=== PATIENT | female | born 1975 | race Two or more races ===

== ENCOUNTER 2017-03-03 19:52 | Emergency (ER) | payer MEDICAID ==
[~2017-03-03] VITALS: Ht 157.5 cm; Wt 68.9 kg
[2017-03-03] MEDS ORDERED: ONDANSETRON 4 MG/2 ML VIAL IV ONE (20:45)
[2017-03-03] MEDS ORDERED: KETOROLAC TROMETHAMINE 15 MG INJ IV ONE (20:45)
[2017-03-03] MEDS ORDERED: IV NORMAL SALINE 1000 ML BAG IV ONE (20:45)
[2017-03-03] MEDS ORDERED: HYDROMORPHONE 1 MG/1 ML DISP.SYRIN IV ONE (20:45)
[2017-03-03 21:01] LABS: *BILIRUBIN,URIN NEGATIVE (NEGATIVE); *BLOOD, URINE 3+ (NEGATIVE); *COLOR,URINE YELLOW (YELLOW); *KETONES,URINE NEGATIVE (NEGATIVE); *PROTEIN,URINE NEGATIVE (NEGATIVE); *UROBILINOGEN,URINE 0.2 E.U./dl (NORMAL); LEUKOCYTE ESTERASE ,URINE NEGATIVE (NEGATIVE); NITRITE, URINE NEGATIVE (NEGATIVE); UGLUCOSE NEGATIVE (NEGATIVE)
[2017-03-03] MEDS ORDERED: KETOROLAC TROMETHAMINE 15 MG INJ ONE (21:06)
[2017-03-03] MEDS ORDERED: ONDANSETRON 4 MG/2 ML VIAL ONE (21:06)
[2017-03-03] MEDS ORDERED: HYDROMORPHONE 2 MG/1 ML DISP.SYRIN ONE (21:06)
[2017-03-03 21:11] LABS: BASOPHILS # (AUTO) 0.1 K/uL (0.0-8.0); BASOPHILS % (AUTO) 0.8 % (0.0-2.0); CREATININE 0.7 mg/dL (0.6-1.3); HEMATOCRIT 42.3 % (37-47); LYMPHOCYTES % (AUTO) 20.1 % (20.5-51.5); MEAN CORPUSCULAR HEMOGLOBIN 27.4 UUG (27.0-31.0); MEAN CORPUSCULAR HGB CONC 33 g/dL (32.0-37.0); MEAN CORPUSCULAR VOLUME 82.9 FL (81.0-99.0); MONOCYTES # (AUTO) 0.8 K/UL (0.1-1.30); MONOCYTES % (AUTO) 8.3 % (0.0-11.0); NEUTROPHILS % (AUTO) 60.8 % (38.5-71.5); PLATELET COUNT (AUTO) 320 K/UL (150-450); POTASSIUM 3.7 mmol/L (3.5-5.1); WHITE BLOOD COUNT (AUTO) 9.9 K/UL (4.0-11.2)
[2017-03-03 21:16] LABS: *CLARITY,URINE HAZY (CLEAR); BILIRUBIN,DIRECT 0.1 mg/dL (0.0-0.2); BILIRUBIN,TOTAL 0.3 mg/dL (0.2-1.0); TOTAL PROTEIN, SERUM 7.4 g/dL (6.4-8.2)
[2017-03-03 21:20] LABS: BACTERIA,URINE MODERATE /HPF (NONE SEEN); SQUAMOUS EPITHELIAL CELL,UR MANY /HPF (NONE SEEN); WBC,URINE 0-3 /HPF (0-3)
[2017-03-03 21:26] LABS: *URINE HCG, QUAL NEGATIVE (NEGATIVE)
[2017-03-03 23:18] VITALS: BP 124/76
--- NOTE | 2017-03-03 23:18 | NUR ---
Patient discharged to home in stable conditon. Written and verbal after care instructions given. Patient verbalizes understanding of instructions.
== END 2017-03-03 23:19 | disposition home or self-care (01) ==
LOC: ER 19:54
DX: N20.0 Calculus of kidney (principal); R16.0 Hepatomegaly, not elsewhere classified; K42.9 Umbilical hernia without obstruction or gangrene
CPT/HCPCS: 36415; 71010; 74176; 80048; 80076; 81001; 83690; 84703; 85025; 87077; 87086; 87186; 93005; 96361; 96374; 96375; 99285; A4663; J1170; J1885; J2405; J7030

== ENCOUNTER 2020-02-18 15:54 | Emergency (ER) | payer MEDICAID ==
[~2020-02-18] VITALS: Ht 157.5 cm; Wt 72.6 kg
--- NOTE | 2020-02-18 16:15 | NUR ---
Dr Nguyen at the bedside for MSE.
[2020-02-18] MEDS ORDERED: DEXAMETHASONE SOD PHOSPHATE 4 MG INJ IV ONE (16:30)
[2020-02-18] MEDS ORDERED: KETOROLAC TROMETHAMINE 15 MG INJ IVP ONE (16:30)
[2020-02-18] MEDS ORDERED: IV NORMAL SALINE 1000 ML BAG IV ONE (16:30)
[2020-02-18] MEDS ORDERED: DEXAMETHASONE SOD PHOSPHATE 10 MG INJ ONE (16:33)
[2020-02-18] MEDS ORDERED: KETOROLAC TROMETHAMINE 15 MG INJ ONE (16:33)
[2020-02-18 16:56] LABS: BASOPHILS % (AUTO) 0.4 % (0.0-2.0); EOSINOPHILS # (AUTO) 0.9 K/uL (0.0-0.7); EOSINOPHILS % (AUTO) 8.5 % (0.0-7.0); HEMATOCRIT 38.5 % (31.2-41.9); HEMOGLOBIN 13.3 g/dL (10.9-14.3); LYMPHOCYTES # (AUTO) 0.9 K/uL (20.0-40.0); MEAN CORPUSCULAR HGB CONC 35 g/dL (32.3-35.6); MEAN CORPUSCULAR VOLUME 84.1 fL (75.5-95.3); MONOCYTES # (AUTO) 1.1 K/uL (2.0-10.0); MONOCYTES % (AUTO) 10.8 % (0.0-11.0); NEUTROPHILS # (AUTO) 7.3 K/uL (1.8-8.9); NEUTROPHILS % (AUTO) 71.3 % (38.5-71.5); PLATELET COUNT (AUTO) 371 K/uL (179-408); RED BLOOD CELL COUNT(AUTO) 4.58 MIL/uL (3.63-4.92); WHITE BLOOD COUNT (AUTO) 10.2 K/uL (3.8-11.8)
[2020-02-18 17:04] LABS: CREATININE 0.7 mg/dL (0.6-1.3); POTASSIUM 3.4 mmol/L (3.5-5.1)
[2020-02-18] MEDS ORDERED: AZITHROMYCIN 250 MG TABLET PO ONE (17:15)
[2020-02-18] MEDS ORDERED: CEFTRIAXONE 1 G in IV DEXTROSE 5% 50 ML IV ONE (17:15)
[2020-02-18] MEDS ORDERED: CEFTRIAXONE 1 G VIAL ONE (17:16)
[2020-02-18] MEDS ORDERED: AZITHROMYCIN 250 MG TABLET ONE (17:16)
[2020-02-18 17:22] LABS: BILIRUBIN,DIRECT 0.1 mg/dL (0.0-0.2); BILIRUBIN,TOTAL 0.2 mg/dL (0.2-1.0)
[2020-02-18 17:23] LABS: FERRITIN 100 ng/mL (8-252); LACTATE DEHYDROGENASE 198 U/L (81-234)
[2020-02-18 17:36] LABS: *BILIRUBIN,URIN NEGATIVE (NEGATIVE); *BLOOD, URINE 2+ (NEGATIVE); *CLARITY,URINE CLEAR (CLEAR); *COLOR,URINE LIGHT YELLOW (YELLOW); *KETONES,URINE NEGATIVE (NEGATIVE); *UROBILINOGEN,URINE 0.2 E.U./dl (NORMAL); LEUKOCYTE ESTERASE ,URINE NEGATIVE (NEGATIVE); NITRITE, URINE NEGATIVE (NEGATIVE); PH,URINE 6.5 (5.0-8.0); UGLUCOSE NEGATIVE (NEGATIVE)
--- NOTE | 2020-02-18 17:50 | NUR ---
Pt signed consent for IV contrasted Ct, placed in the chart.
[2020-02-18] MEDS ORDERED: IOHEXOL 350 100 ML INFUS..BTL ONE (18:26)
[2020-02-18] MEDS ORDERED: SWABABLE VALVE TRANSFER SET EA MC ONE (18:26)
[2020-02-18] MEDS ORDERED: IV NORMAL SALINE 250 ML IV ONE (18:26)
--- NOTE | 2020-02-18 18:27 | NUR ---
Pt out of ER for CTA.
--- NOTE | 2020-02-18 19:05 | NUR ---
Handoff report given to Jayme CUETO.
--- NOTE | 2020-02-18 20:24 | NUR ---
Patient discharged to home in stable condition. Written and verbal after care instructions given. Patient verbalizes understanding of instructions. Stressed follow up or return to ER for worsening s/s. Patient out of ER with steady gait, no acute signs of distress, VSS, all belongings taken, IV site discontinued, provided with copies and CD of Xray and CTA and lab results.
[2020-02-18 20:27] VITALS: BP 134/85
[2020-02-18 20:28] LABS: BACTERIA,URINE NONE SEEN /HPF (NONE SEEN); SQUAMOUS EPITHELIAL CELL,UR FEW /HPF (NONE SEEN); WBC,URINE 0-3 /HPF (0-3)
== END 2020-02-18 20:28 | disposition home or self-care (01) ==
LOC: ER 15:56
DX: J18.1 Lobar pneumonia, unspecified organism (principal); J91.8 Pleural effusion in other conditions classified elsewhere; Z20.828 Contact with and (suspected) exposure to other viral communicable diseases
CPT/HCPCS: 36415; 71045; 71275; 80048; 80076; 81001; 82728; 83605; 83615; 84484; 85025; 85379; 85730; 86403; 87040 ×2; 87070; 87086; 87400; 93005; 96365; 96375; 99285; J0696; J1100; J1885; Q9967; U0003; 70030-TC; A4663; J7030; J7050; Q0144

== ENCOUNTER 2020-02-26 21:14 | Emergency (ER) | payer MEDICAID ==
[~2020-02-26] VITALS: Ht 157.5 cm; Wt 72.6 kg
--- NOTE | 2020-02-26 21:25 | NUR ---
Pt was triaged and placed back in ER waiting room, there are no ER beds available at this time.
--- NOTE | 2020-02-26 22:45 | NUR ---
Pt was not found in ER waiting room or outside ER.
== END 2020-02-26 22:52 | disposition left against medical advice (07) ==
LOC: ER 21:16
DX: Z75.3 Unavailability and inaccessibility of health-care facilities (principal)